=== PATIENT | male | born 1930 | race Caucasian/White ===

== ENCOUNTER → 2017-12-29 | Outpatient (CLI) | payer MEDICARE, OTHER ==
[~2017-12-29] MED LIST: ACET325 PO; ALBU8HFA2 INH; ALLO300 PO; ASCO500 PO; CALCAVITD PO; CHOL10002 PO; CYAN1000 PO; DIAZ5 PO; FISH1000 PO; FLUO25TC TOP; FLUT220OIA IH; FOLI1 PO; GABA100 PO; GABA300 PO; GLUC500 PO; HYDACE5325 PO; IBUP400 PO; LEVO750 PO; MAGOXI400 PO; METO50; METO50 PO; NITR.4SL SL; OMEPRAZOLE MAGN20 MG PO; POTCIT10 PO; PYRI100 PO; ROSU5 PO; TAMS.4ER PO; TOCO1000 PO; VALS80 PO; ZINC15 PO
== END | disposition home or self-care (01) ==
LOC: PLD 12:40 → LAB SHORT 12:40
DX: D48.5 Neoplasm of uncertain behavior of skin (principal)
CPT/HCPCS: 88305

== ENCOUNTER → 2018-01-21 | Outpatient (CLI) | payer MEDICARE, OTHER ==
[~2018-01-21] MED LIST changes: -GABA100 PO; -LEVO750 PO; +METO100 PO; -METO50; -METO50 PO; +OMEP20ER PO; -OMEPRAZOLE MAGN20 MG PO; -TAMS.4ER PO; -TOCO1000 PO; +TOCO400 PO
== END ==
LOC: PLD 13:32 → LAB SHORT 13:32
DX: L57.0 Actinic keratosis (principal)
CPT/HCPCS: 88305

== ENCOUNTER → 2019-06-23 | Outpatient (CLI) | payer MEDICARE, OTHER ==
[~2019-06-23] MED LIST changes: +GABA100 PO; +LEVO750 PO; -METO100 PO; +METO50; +METO50 PO; -OMEP20ER PO; +OMEPRAZOLE MAGN20 MG PO; +TAMS.4ER PO; +TOCO1000 PO; -TOCO400 PO
== END | disposition home or self-care (01) ==
LOC: LAB SHORT 10:22 → PLD 10:22
DX: C44.629 Squamous cell carcinoma of skin of left upper limb, including shoulder (principal); L82.0 Inflamed seborrheic keratosis
CPT/HCPCS: 88305

== ENCOUNTER → 2019-07-22 | Outpatient (CLI) | payer MEDICARE, OTHER | END | disposition home or self-care (01) | LOC: PLD 15:44 → LAB SHORT 15:44 | DX: D11.0 Benign neoplasm of parotid gland (principal) | CPT/HCPCS: 88173 ==

== ENCOUNTER → 2019-12-29 | Outpatient (CLI) | payer MEDICARE, OTHER | END | disposition home or self-care (01) | LOC: PLD 11:01 → LAB SHORT 11:01 | DX: D48.5 Neoplasm of uncertain behavior of skin (principal) | CPT/HCPCS: 88305 ==

== ENCOUNTER → 2021-01-10 | Outpatient (CLI) | payer MEDICARE, OTHER | LOC: LAB 11:59 → LAB SHORT 11:59 | DX: D48.5 Neoplasm of uncertain behavior of skin (principal); Z88.8 Allergy status to other drugs, medicaments and biological substances | CPT/HCPCS: 88305 ==

== ENCOUNTER → 2021-02-12 | Outpatient (CLI) | payer MEDICARE, OTHER | END | disposition home or self-care (01) | LOC: LAB SHORT 08:05 | DX: C44.222 Squamous cell carcinoma of skin of right ear and external auricular canal (principal) | CPT/HCPCS: 88305 ==

== ENCOUNTER 2021-07-19 16:27 | Inpatient (IN) | payer MEDICARE, OTHER ==
[~2021-07-19] VITALS: Ht 170.2 cm; Wt 81.8 kg
[2021-07-19 17:06] LABS: BASOPHILS ABSOLUTE AUTO 0.03 K/mm3 (0.00-0.23); BASOPHILS PERCENT AUTO 0 % (0-2); EOSINOPHILS ABSOLUTE AUTO 0.13 K/mm3 (0.00-0.68); EOSINOPHILS PERCENT AUTO 2 % (0-6); Hematocrit 36.3 % (37.0-53.0); Hemoglobin 11.9 g/dL (13.5-17.5); IMMATURE GRAN ABSOLUTE AUTO 0.03 K/mm3 (0.00-0.10); IMMATURE GRAN PERCENT AUTO 0 % (0-1); LYMPHOCYTES PERCENT AUTO 20 % (21-46); MONOCYTES ABSOLUTE AUTO 1.08 K/mm3 (0.16-1.47); MONOCYTES PERCENT AUTO 15 % (4-13); Mean Corpuscular HGB 31.2 pg (26.0-34.0); Mean Corpuscular HGB Conc 32.8 g/dL (31.5-36.5); Mean Corpuscular Volume 95 fL (80-100); Mean Platelet Volume 9.4 fL (9.1-12.4); NEUTROPHILS ABSOLUTE AUTO 4.66 K/mm3 (1.96-9.15); NEUTROPHILS PERCENT AUTO 63 % (41-73); Platelet Count 216 K/mm3 (150-400); RDW Coefficient Variation 17.1 % (11.7-14.2); RDW Standard Deviation 58.9 fL (35.1-46.3); Red Blood Cell Count 3.82 M/mm3 (4.30-5.90); White Blood Cell Count 7.43 K/mm3 (4.00-11.30)
[2021-07-19 17:33] LABS: Alanine Aminotransfer (ALT/SGP 145 U/L (12-78); Albumin, Blood 3.7 g/dL (3.4-5.0); Albumin/Globulin Ratio 0.8 (0.8-1.8); Alk Phos 141 U/L (50-136); Anion Gap 9 mmol/L (6-16); Aspartate Aminotrans (AST/SGOT 137 U/L (12-37); Bilirubin, Total 3.7 mg/dL (0.1-1.0); Blood Urea Nitrogen 18 mg/dL (8-24); Bun/Creatinine Ratio 13.1 (12.0-20.0); CO2, Blood 22 mmol/L (21-32); Calcium, Blood 9.6 mg/dL (8.5-10.1); Chloride, Blood 104 mmol/L (98-108); Creatinine, Blood 1.37 mg/dL (0.60-1.20); Ethanol (Alcohol), Blood, Med <3 mg/dL; Globulin, Blood 4.9 g/dL (2.2-4.0); Glomerular Filtration Rate 49 (60-); Glucose, Blood 140 mg/dL (70-99); Potassium, Blood 3.7 mmol/L (3.5-5.5); Sodium, Blood 135 mmol/L (136-145); Total Protein, Blood 8.6 g/dL (6.4-8.2); Troponin I <0.015 ng/mL (0.000-0.040)
[2021-07-19] MEDS ORDERED: ALLO300 PO (20:09)
[2021-07-19] MEDS ORDERED: FOLI1 PO (20:09)
[2021-07-19] MEDS ORDERED: ATORVASTATIN CA20 MG PO (20:09)
[2021-07-19] MEDS ORDERED: METOPROLOL TART25 MG PO (20:10)
[2021-07-19] MEDS ORDERED: AMLODIPINE BESYL5 MG PO (20:10)
[2021-07-19] MEDS ORDERED: LOSARTAN POTAS100 MG PO (20:10)
[2021-07-19] MEDS ORDERED: TAMSULOSIN HCL0.4 M1 PO (20:10)
[2021-07-19] MEDS ORDERED: GABA300 PO (20:11)
[2021-07-19] MEDS ORDERED: NEURONTIN300 MG PO (20:11)
[2021-07-20 00:59] LABS: Source, Urine Clean Catch
[2021-07-20 01:02] LABS: Blood, Urine Neg (Neg); Glucose Qualitative, Urine Neg (Neg); Ketones, Urine Neg (Neg); Leukocyte Esterase, Urine 1+ (Neg); Nitrite, Urine Neg (Neg); Protein, Urine 2+ (Neg); Specific Gravity, Urine 1.015 (1.003-1.022); Urobilinogen, Urine 2+ (Normal)
[2021-07-20 01:07] LABS: Appearance, Urine Clear (Clear); Bilirubin, Urine 1+ (Neg); Color, Urine Amber (P-Yellow)
[2021-07-20 01:08] LABS: Bacteria Rare /hpf; Red Blood Cells, Urine Not Seen /hpf (0-2); Squamous Epithelial Cells Not Seen /hpf (Few)
--- NOTE | 2021-07-20 03:22 | NUR ---
SHIFT SUMMARY PT ER ADMIT THIS SHIFT FOR CHOLECYSTITIS, RUQ PAIN. PT MEDICATED FOR PAIN IN ER SHORTLY BEFORE ARRIVAL TO THE UNIT. PLAN IS FOR SURGICAL CONSULT WITH DR. NGUYEN AND POSSIBLE PROCEDURE TODAY. PT IS NPO AT THIS TIME. IV ANTIBIOTICS AND FLUIDS ORDERED. PT IS A/OX4. VITALS STABLE. COVID SWAB SENT FOR PRE-OP SCREENING. BED IN LOWEST POSITION, CALL LIGHT WITHIN REACH.
[2021-07-20 04:16] LABS: SARS-Cov-2 (COVID-19) PCR, MMC NEGATIVE (NEGATIVE)
[2021-07-20 04:34] LABS: BASOPHILS ABSOLUTE AUTO 0.03 K/mm3 (0.00-0.23); BASOPHILS PERCENT AUTO 1 % (0-2); EOSINOPHILS ABSOLUTE AUTO 0.12 K/mm3 (0.00-0.68); EOSINOPHILS PERCENT AUTO 2 % (0-6); Hemoglobin 10.9 g/dL (13.5-17.5); IMMATURE GRAN ABSOLUTE AUTO 0.03 K/mm3 (0.00-0.10); IMMATURE GRAN PERCENT AUTO 1 % (0-1); LYMPHOCYTES ABSOLUTE AUTO 1.49 K/mm3 (0.84-5.20); LYMPHOCYTES PERCENT AUTO 29 % (21-46); MONOCYTES ABSOLUTE AUTO 0.89 K/mm3 (0.16-1.47); MONOCYTES PERCENT AUTO 17 % (4-13); Mean Corpuscular HGB Conc 32.1 g/dL (31.5-36.5); Mean Corpuscular Volume 97 fL (80-100); Mean Platelet Volume 9.2 fL (9.1-12.4); NEUTROPHILS PERCENT AUTO 50 % (41-73); Platelet Count 213 K/mm3 (150-400); RDW Coefficient Variation 16.9 % (11.7-14.2); RDW Standard Deviation 60.6 fL (35.1-46.3); Red Blood Cell Count 3.52 M/mm3 (4.30-5.90); White Blood Cell Count 5.16 K/mm3 (4.00-11.30)
[2021-07-20 04:46] LABS: International Normalized Ratio 1.13; Prothrombin Time Results 12.1 Sec (9.7-11.5)
[2021-07-20 04:50] LABS: Albumin, Blood 3.4 g/dL (3.4-5.0); Albumin/Globulin Ratio 0.8 (0.8-1.8); Bilirubin, Total 1.7 mg/dL (0.1-1.0); Bun/Creatinine Ratio 12.9 (12.0-20.0); Calcium, Blood 9.1 mg/dL (8.5-10.1); Creatinine, Blood 1.24 mg/dL (0.60-1.20); Globulin, Blood 4.3 g/dL (2.2-4.0); Potassium, Blood 3.7 mmol/L (3.5-5.5); Total Protein, Blood 7.7 g/dL (6.4-8.2)
--- NOTE | 2021-07-20 10:56 | NUR ---
History, Chart, Medications and Allergies reviewed before start of procedure.Lungs clear T/O to Auscultation. Patient confirms NPO status and agrees with scheduled surgery. Pre-Op teaching done. Pt verbalizes understanding.
--- NOTE | 2021-07-20 10:59 | NUR ---
PT JEWLERY AND GLASSES LEFT IN ROOM
--- NOTE | 2021-07-20 13:12 | NUR ---
PT IS ALERT ORIENTED, PT IS ON ROOM AIR, PATIENT DENIES HAVING, PAIN, N/V,SOB,PT IS IN BED,PAIN DOWNSTAIR FOR SURGERY, CALLED,AND GAVE REPORT TO RN PT WILL TRANSFER TO ROOM 216 AFTER SURGERY WHERE PT WILL BE MONITORR.
--- NOTE | 2021-07-20 13:50 | NUR ---
07/20/21 Tiffany9 Deepa Skinner MULTIPLE INSTRUMENT COUNTS DONE THROUGHOUT THE CASE, DUE TO THE DIFFICULTY OF THE ORIGINAL INSTRUMENT COUNT, ROOM CONSENSUS WAS TO ALSO ORDER AN X-RAY TO CONFIRM COUNTS.
--- NOTE | 2021-07-20 16:02 | NUR ---
CALLED DR NGUYEN AFTER I RECIEVED THE REPORT FROM THE PACU NURSE TO VOICE CONCERNS ABOUT PAIN CONTROL. DR NGUYEN STATED THAT HE WOULD GO SEE THE PATIENT IN PACU. PT ARRIVED TO UNIT AT APPROX 1545. PT GROANING IN PAIN. 3L OXYGEN VIA NASAL CANNULA ON ARRIVAL. SATURATION 91-94%. CONTINUOUS BIOX PLACED AT THAT TIME. VITALS TAKEN. PT UNABLE TO RESPOND TO MANY QUESTIONS, BUT ORIENTED TO SELF. WILL CONTINUE TO MONITOR.
--- NOTE | 2021-07-20 18:13 | NUR ---
SHIFT SUMMARY PATIENT S/P OPEN CHOLECTOMY POD 0 WITH DOUGIE DRAIN AND MAHENDRA DRAIN. SURGICAL INCISION TO MAHENDRA DRAIN WITH SMALL AMOUNT OF SANGUINEOUS DRAINAGE PRESENT (AREA MARKED). VSS; PATIENT LETHARGIC AROUSABLE WITH LIGHT STIMULATION UPON INITIAL ASSESSMENT. NOW AOX2-3 IMPROVING ALERTNESS. PATIENT REPORTS PAIN 10/10, 2MG PRN IV MORPHINE GIVEN WITH MILD RELIEF. PATIENT TOLERATED WATER, CRACKERS, AND JELLO. DIET ADVANCED PER ORDER. SCHROEDER CATHETER IN PLACE POST OPERATIVELY, FRUIT PUNCH COLOR NOTED, GOOD OUTPUT. HOURLY ROUNDING MAINTAINED, WILL CONTINUE WITH PLAN OF CARE
[2021-07-21 04:09] LABS: BASOPHILS ABSOLUTE AUTO 0.01 K/mm3 (0.00-0.23); BASOPHILS PERCENT AUTO 0 % (0-2); EOSINOPHILS PERCENT AUTO 0 % (0-6); Hematocrit 29.8 % (37.0-53.0); Hemoglobin 9.7 g/dL (13.5-17.5); IMMATURE GRAN ABSOLUTE AUTO 0.05 K/mm3 (0.00-0.10); IMMATURE GRAN PERCENT AUTO 1 % (0-1); LYMPHOCYTES ABSOLUTE AUTO 0.87 K/mm3 (0.84-5.20); LYMPHOCYTES PERCENT AUTO 11 % (21-46); MONOCYTES ABSOLUTE AUTO 0.67 K/mm3 (0.16-1.47); MONOCYTES PERCENT AUTO 8 % (4-13); Mean Corpuscular HGB 30.8 pg (26.0-34.0); Mean Corpuscular HGB Conc 32.6 g/dL (31.5-36.5); Mean Corpuscular Volume 95 fL (80-100); Mean Platelet Volume 9.1 fL (9.1-12.4); NEUTROPHILS ABSOLUTE AUTO 6.47 K/mm3 (1.96-9.15); NEUTROPHILS PERCENT AUTO 80 % (41-73); Platelet Count 224 K/mm3 (150-400); RDW Coefficient Variation 16.3 % (11.7-14.2); RDW Standard Deviation 56.3 fL (35.1-46.3); Red Blood Cell Count 3.15 M/mm3 (4.30-5.90); White Blood Cell Count 8.07 K/mm3 (4.00-11.30)
[2021-07-21 04:31] LABS: Alanine Aminotransfer (ALT/SGP 109 U/L (12-78); Albumin, Blood 3.1 g/dL (3.4-5.0); Albumin/Globulin Ratio 0.8 (0.8-1.8); Alk Phos 106 U/L (50-136); Anion Gap 7 mmol/L (6-16); Aspartate Aminotrans (AST/SGOT 83 U/L (12-37); Bilirubin, Total 1.1 mg/dL (0.1-1.0); Blood Urea Nitrogen 15 mg/dL (8-24); Bun/Creatinine Ratio 14.9 (12.0-20.0); CO2, Blood 25 mmol/L (21-32); Calcium, Blood 8.8 mg/dL (8.5-10.1); Chloride, Blood 103 mmol/L (98-108); Creatinine, Blood 1.01 mg/dL (0.60-1.20); Globulin, Blood 4.1 g/dL (2.2-4.0); Glomerular Filtration Rate >60 (60-); Glucose, Blood 116 mg/dL (70-99); Sodium, Blood 135 mmol/L (136-145); Total Protein, Blood 7.2 g/dL (6.4-8.2)
--- NOTE | 2021-07-21 17:02 | NUR ---
SHIFT SUMMARY PAIN HAS BEEN MANAGED WITH PO PAIN MEDICATION THIS SHIFT. PAIN HAS BEEN MORE TOLERABLE SINCE PT WAS INCREASED FROM 1 PERCOCET TO 2 THIS AFTERNOON. PT WAS A 1-2 PERSON ASSIST FOR TRANSFERS. HE IS WEAK UPON STANDING AND REQUIRES THE GAIT BELT AND WALKER. PT IS HAVING SEROSANGUINOUS DRAINAGE FROM HIS MAHENDRA DRAIN. VSS. WILL MONITOR UNTIL REPORT TO PATRICIA GOFF.
[2021-07-22 05:56] LABS: BASOPHILS ABSOLUTE AUTO 0.04 K/mm3 (0.00-0.23); BASOPHILS PERCENT AUTO 1 % (0-2); EOSINOPHILS ABSOLUTE AUTO 0.11 K/mm3 (0.00-0.68); EOSINOPHILS PERCENT AUTO 2 % (0-6); Hematocrit 29.9 % (37.0-53.0); Hemoglobin 9.6 g/dL (13.5-17.5); IMMATURE GRAN ABSOLUTE AUTO 0.04 K/mm3 (0.00-0.10); IMMATURE GRAN PERCENT AUTO 1 % (0-1); LYMPHOCYTES ABSOLUTE AUTO 1.48 K/mm3 (0.84-5.20); LYMPHOCYTES PERCENT AUTO 20 % (21-46); MONOCYTES ABSOLUTE AUTO 1.06 K/mm3 (0.16-1.47); MONOCYTES PERCENT AUTO 14 % (4-13); Mean Corpuscular HGB Conc 32.1 g/dL (31.5-36.5); Mean Corpuscular Volume 97 fL (80-100); Mean Platelet Volume 9.1 fL (9.1-12.4); NEUTROPHILS ABSOLUTE AUTO 4.78 K/mm3 (1.96-9.15); NEUTROPHILS PERCENT AUTO 64 % (41-73); Platelet Count 232 K/mm3 (150-400); RDW Coefficient Variation 16.7 % (11.7-14.2); White Blood Cell Count 7.51 K/mm3 (4.00-11.30)
[2021-07-22 06:49] LABS: Alanine Aminotransfer (ALT/SGP 82 U/L (12-78); Albumin, Blood 3.2 g/dL (3.4-5.0); Albumin/Globulin Ratio 0.8 (0.8-1.8); Alk Phos 95 U/L (50-136); Anion Gap 6 mmol/L (6-16); Aspartate Aminotrans (AST/SGOT 63 U/L (12-37); Bilirubin, Total 0.8 mg/dL (0.1-1.0); Blood Urea Nitrogen 16 mg/dL (8-24); Bun/Creatinine Ratio 14.5 (12.0-20.0); CO2, Blood 27 mmol/L (21-32); Calcium, Blood 8.9 mg/dL (8.5-10.1); Chloride, Blood 103 mmol/L (98-108); Glomerular Filtration Rate >60 (60-); Glucose, Blood 97 mg/dL (70-99); Potassium, Blood 3.5 mmol/L (3.5-5.5); Sodium, Blood 136 mmol/L (136-145); Total Protein, Blood 7.2 g/dL (6.4-8.2)
--- NOTE | 2021-07-22 16:29 | NUR ---
URINARY CATH PLACED AT THIS TIME DUE TO PATIENTS BLADDER SCAN SHOWED 545ML URINE IN BLADDER, PER HOSPITALIST TO PLACE CATH IF PATIENT UNABLE TO URINATE AFTER FIRST STRAIGHT CATH THIS AM. PATIENT TOLERATED WELL, 14F COUDE PLACED WITH 10ML NS BALLOON INFLATED. OPHELIA COLORED URINE RETURNED WITH BLOOD CLOTS SCATTERED, MINIMAL AMOUNT OF BLOOD CLOTS NOTED.
--- NOTE | 2021-07-22 16:48 | NUR ---
PATIENT LYING IN BED WITH NO SIGNS OR SYMPTOMS ACUTE DISTRESS NOTED. SCHROEDER CATH PLACED FOR URINARY RETENTION PER MD. CALL LIGHT AND WATER IN EASY REACH. WORKED WITH PT TODAY, TOLERATED WELL. ABLE TO MAKE NEEDS AND WANTS KNOWN.
[2021-07-23 04:36] LABS: BASOPHILS ABSOLUTE AUTO 0.06 K/mm3 (0.00-0.23); BASOPHILS PERCENT AUTO 1 % (0-2); EOSINOPHILS ABSOLUTE AUTO 0.16 K/mm3 (0.00-0.68); EOSINOPHILS PERCENT AUTO 3 % (0-6); Hematocrit 29.5 % (37.0-53.0); Hemoglobin 9.6 g/dL (13.5-17.5); IMMATURE GRAN ABSOLUTE AUTO 0.07 K/mm3 (0.00-0.10); IMMATURE GRAN PERCENT AUTO 1 % (0-1); LYMPHOCYTES ABSOLUTE AUTO 1.77 K/mm3 (0.84-5.20); LYMPHOCYTES PERCENT AUTO 29 % (21-46); MONOCYTES ABSOLUTE AUTO 1.07 K/mm3 (0.16-1.47); MONOCYTES PERCENT AUTO 18 % (4-13); Mean Corpuscular HGB 30.7 pg (26.0-34.0); Mean Corpuscular HGB Conc 32.5 g/dL (31.5-36.5); Mean Corpuscular Volume 94 fL (80-100); Mean Platelet Volume 9.2 fL (9.1-12.4); NEUTROPHILS ABSOLUTE AUTO 2.99 K/mm3 (1.96-9.15); NEUTROPHILS PERCENT AUTO 49 % (41-73); Platelet Count 232 K/mm3 (150-400); RDW Coefficient Variation 16.6 % (11.7-14.2); RDW Standard Deviation 57.1 fL (35.1-46.3); Red Blood Cell Count 3.13 M/mm3 (4.30-5.90); White Blood Cell Count 6.12 K/mm3 (4.00-11.30)
[2021-07-23 05:01] LABS: Alanine Aminotransfer (ALT/SGP 69 U/L (12-78); Albumin, Blood 3.2 g/dL (3.4-5.0); Albumin/Globulin Ratio 0.8 (0.8-1.8); Alk Phos 95 U/L (50-136); Anion Gap 7 mmol/L (6-16); Aspartate Aminotrans (AST/SGOT 54 U/L (12-37); Bilirubin, Total 0.8 mg/dL (0.1-1.0); Blood Urea Nitrogen 13 mg/dL (8-24); Bun/Creatinine Ratio 13.6 (12.0-20.0); CO2, Blood 26 mmol/L (21-32); Chloride, Blood 103 mmol/L (98-108); Creatinine, Blood 0.96 mg/dL (0.60-1.20); Globulin, Blood 3.9 g/dL (2.2-4.0); Glomerular Filtration Rate >60 (60-); Glucose, Blood 93 mg/dL (70-99); Potassium, Blood 3.5 mmol/L (3.5-5.5); Sodium, Blood 136 mmol/L (136-145); Total Protein, Blood 7.1 g/dL (6.4-8.2)
--- NOTE | 2021-07-23 06:23 | NUR ---
POD 3 S/P OPEN RHONDA. PT VSS T/O NIGHT. DRESSING CDI. MAHENDRA DRNG LIGHT SS DRNG. PAIN MGD W/2 PERCOCET W/REP RELIEF. PT HAD NO C/O N/V, IS PASSING FLATUS, NO BM. SCHROEDER DRNG CLEAR YELLOW URINE, NO CLOTS NOTED. PT USING I/S AT BEDSIDE.
--- NOTE | 2021-07-23 16:00 | NUR ---
PATIENT IS ALERT AND ORIENTED X 4. ABLE TO MAKE NEEDS AND WANTS KNOWN. CALL LIGHT AND WATER IN EASY REACH. NO SIGNS OR SYMPTOMS ACUTE DISTRESS NOTED. DRESSING TO ABD CDI. MAHENDRA DRAIN DRAINING CLEAR PINK LIQUID. SCHROEDER CATH INTACT WITH NO ISSUES TO NOTE AT THIS TIME. WILL MONITOR.
[2021-07-24 04:40] LABS: BASOPHILS ABSOLUTE AUTO 0.05 K/mm3 (0.00-0.23); BASOPHILS PERCENT AUTO 1 % (0-2); EOSINOPHILS ABSOLUTE AUTO 0.17 K/mm3 (0.00-0.68); EOSINOPHILS PERCENT AUTO 3 % (0-6); Hematocrit 29.9 % (37.0-53.0); Hemoglobin 9.6 g/dL (13.5-17.5); IMMATURE GRAN ABSOLUTE AUTO 0.13 K/mm3 (0.00-0.10); IMMATURE GRAN PERCENT AUTO 2 % (0-1); LYMPHOCYTES PERCENT AUTO 23 % (21-46); MONOCYTES ABSOLUTE AUTO 0.93 K/mm3 (0.16-1.47); MONOCYTES PERCENT AUTO 14 % (4-13); Mean Corpuscular HGB 30.4 pg (26.0-34.0); Mean Corpuscular HGB Conc 32.1 g/dL (31.5-36.5); Mean Corpuscular Volume 95 fL (80-100); NEUTROPHILS ABSOLUTE AUTO 3.78 K/mm3 (1.96-9.15); NEUTROPHILS PERCENT AUTO 58 % (41-73); Platelet Count 247 K/mm3 (150-400); RDW Coefficient Variation 16.5 % (11.7-14.2); RDW Standard Deviation 57.3 fL (35.1-46.3); Red Blood Cell Count 3.16 M/mm3 (4.30-5.90); White Blood Cell Count 6.56 K/mm3 (4.00-11.30)
[2021-07-24 05:20] LABS: Alanine Aminotransfer (ALT/SGP 68 U/L (12-78); Albumin, Blood 3.2 g/dL (3.4-5.0); Albumin/Globulin Ratio 0.8 (0.8-1.8); Alk Phos 103 U/L (50-136); Anion Gap 8 mmol/L (6-16); Aspartate Aminotrans (AST/SGOT 53 U/L (12-37); Bilirubin, Total 0.7 mg/dL (0.1-1.0); Blood Urea Nitrogen 15 mg/dL (8-24); Bun/Creatinine Ratio 14.6 (12.0-20.0); CO2, Blood 25 mmol/L (21-32); Calcium, Blood 9.2 mg/dL (8.5-10.1); Chloride, Blood 102 mmol/L (98-108); Creatinine, Blood 1.03 mg/dL (0.60-1.20); Globulin, Blood 4.2 g/dL (2.2-4.0); Glomerular Filtration Rate >60 (60-); Glucose, Blood 104 mg/dL (70-99); Potassium, Blood 3.6 mmol/L (3.5-5.5); Sodium, Blood 135 mmol/L (136-145); Total Protein, Blood 7.4 g/dL (6.4-8.2)
--- NOTE | 2021-07-24 06:15 | NUR ---
PT IS A/OX3. ABLE TO MAKE HIS NEEDS KNOWN. PLEASANT AND COOPERATIVE WITH STAFF AND HIS CARE. IS [place], ONLY HAS 1 HEARING AID AT THIS TIME. NO EVENTS OVER NIGHT. DNR. SCHROEDER CATHETER PATENT, DRAINING CLEAR/YELLOW URINE. BT'S POS X4. DENIED ANY N/V. REPORTS PASSING SOME GAS, BUT IS BELCHING MORE. TOLERATING REG DIET WELL. LAST BM 07/23. PIV TO LAC, PATENT AND SL. DOUGIE DRSG TO ABD CDI. OTHER INCISIONS W/STERI STRIPS.
--- NOTE | 2021-07-24 09:08 | NUR ---
(HOSPITAL SYSTEM WAS DOWN YESTERDAY, THIS NOTE IS FOR 07/23/21) Per chart review with Dr. Bob, pt as MAHENDRA drain still in and this could potentially be removed today. Plan is to d/c the pt tomorrow with his stewart still intact. will order home health at discharge. Pt is fully vaccinated and tested COVID neg. -kjb
[2021-07-24] MEDS ORDERED: Percocet 5-3251 EACH PO (12:50)
--- NOTE | 2021-07-24 13:02 | NUR ---
07/24/21- per chart review with Dr. Bob, pt is stable to discharge home with home health. Met with pt and he declines home health. He states that he doesn't know what they could do for him that he couldn't do for himself and all he needs to do is get moving at home. Explained the benefits of home health and pt still declined. Updated Dr. Bob and he will leave the home health order in chart in case pt changes his mind when he gets home. This was discussed with the pt that he will have the option. Pt reports that he was independent prior to coming into the hospital. He had no caregivers before and no home health. Pt lives in single story home with working utilities with his . There are 3-4 stairs to get into the home with railings and he has no concerns using them. Pt reports that he is still driving and his pharmacy is [facility] in [place]. Pt reports that he is not ready to make hospital f/u appt because he is not ready to drive. Discussed the option of tele-visit appt and pt declined this because "they are pointless." Provided pt with discharge letter and list of area caregivers if he choses to hire one. -nelson
--- NOTE | 2021-07-24 14:16 | NUR ---
DISCHARGE INSTRUCTIONS GIVEN TO PATIENT AT THIS TIME. PATIENT VERBALIZED UNDERSTANDING. MAHENDRA DRAIN EDUCATION GIVEN TO NICOLE, DRESSING TO MAHENDRA DRAIN CDI. DOUGIE DRESSING TO RUQ CDI, EXPLAINED TO PATIENT TO KEEP DRESSINGS CLEAN, DRY AND INTACT. IF THEY COME OFF REPLACE WITH DRESSING SENT HOME WITH. PATIENT DISCHARGING HOME WITH SCHROEDER CATH IN PLACE. LEG BAG PLACED FOR GOING HOME, INSTRUCTED PATIENT TO PUT LARGE BAG ON AT NIGHT, EDUCATION PROVIDED. PATIENT TO FOLLOW UP WITH UROLOGY AND PCP SOON POSSIBLE. NO SIGNS OR SYMPTOMS ACUTE DISTRESS NOTED. AWAITING PATIENTS RIDE TO DISCHARGE. IV REMOVED, TOLERATED WELL.
== END 2021-07-24 14:26 | disposition home or self-care (01) | DRG 415 ==
LOC: ER 16:27 → MEDS 07-20 01:31 → SURS 07-20 01:31 → MEDS 07-20 02:48 → SURS 07-20 12:05
PROVIDERS: Emergency Medicine; Emergency Medicine Emergency Medical Services; Family Medicine; Surgery; ADMIT Hospitalist
PROC: BF13YZZ Fluoroscopy of Gallbladder and Bile Ducts using Other Contrast (ICD-10-PCS; 2021-07-20)
PROC: 0FT40ZZ Resection of Gallbladder, Open Approach (ICD-10-PCS; principal; 2021-07-20 11:15)
PROC: 0FJ44ZZ Inspection of Gallbladder, Percutaneous Endoscopic Approach (ICD-10-PCS; 2021-07-20 11:15)
DX: K81.0 Acute cholecystitis (principal); I69.354 Hemiplegia and hemiparesis following cerebral infarction affecting left non-dominant side; I25.10 Atherosclerotic heart disease of native coronary artery without angina pectoris; Z20.822 Contact with and (suspected) exposure to COVID-19; K76.89 Other specified diseases of liver; I12.9 Hypertensive chronic kidney disease with stage 1 through stage 4 chronic kidney disease, or unspecified chronic kidney disease; R33.8 Other retention of urine; Z53.31 Laparoscopic surgical procedure converted to open procedure; N40.1 Benign prostatic hyperplasia with lower urinary tract symptoms; N18.30 Chronic kidney disease, stage 3 unspecified; M10.9 Gout, unspecified; Z98.890 Other specified postprocedural states; Z90.89 Acquired absence of other organs; Z90.79 Acquired absence of other genital organ(s); Z79.899 Other long term (current) drug therapy; Z88.8 Allergy status to other drugs, medicaments and biological substances; Z85.51 Personal history of malignant neoplasm of bladder
CPT/HCPCS: 36415; 71045; 74018; 74176; 74300; 76705; 80053; 81001; 83690; 84484; 85025; 85610; 85730; 86850; 86900; 86901; 87086; 88304; 93005; 93010; 94762; 96365; 96375; 96376; 97116; 97162; 97530; 99285-25; A9270; C1729; G0480; J0295; J1100; J1644; J2270; J2370; J2405; J2704; J3010; J7030; J7050; J7120; U0004

== ENCOUNTER → 2021-08-16 | Outpatient (CLI) | payer MEDICARE, OTHER ==
[~2021-08-16] MED LIST changes: +AMLODIPINE BESYL5 MG PO; +ATORVASTATIN CA20 MG PO; +LOSARTAN POTAS100 MG PO; +METOPROLOL TART25 MG PO; +NEURONTIN300 MG PO; +Percocet 5-3251 EACH PO; +TAMSULOSIN HCL0.4 M1 PO
[2021-08-16 14:49] LABS: BASOPHILS ABSOLUTE AUTO 0.05 K/mm3 (0.00-0.23); BASOPHILS PERCENT AUTO 0 % (0-2); EOSINOPHILS PERCENT AUTO 2 % (0-6); Hematocrit 30.7 % (37.0-53.0); Hemoglobin 9.9 g/dL (13.5-17.5); IMMATURE GRAN ABSOLUTE AUTO 0.08 K/mm3 (0.00-0.10); IMMATURE GRAN PERCENT AUTO 1 % (0-1); LYMPHOCYTES ABSOLUTE AUTO 1.79 K/mm3 (0.84-5.20); LYMPHOCYTES PERCENT AUTO 13 % (21-46); MONOCYTES ABSOLUTE AUTO 2.17 K/mm3 (0.16-1.47); MONOCYTES PERCENT AUTO 15 % (4-13); Mean Corpuscular HGB 30.7 pg (26.0-34.0); Mean Corpuscular HGB Conc 32.2 g/dL (31.5-36.5); Mean Corpuscular Volume 95 fL (80-100); Mean Platelet Volume 9.1 fL (9.1-12.4); NEUTROPHILS ABSOLUTE AUTO 9.97 K/mm3 (1.96-9.15); NEUTROPHILS PERCENT AUTO 69 % (41-73); Platelet Count 135 K/mm3 (150-400); RDW Standard Deviation 62.4 fL (35.1-46.3); Red Blood Cell Count 3.22 M/mm3 (4.30-5.90); White Blood Cell Count 14.36 K/mm3 (4.00-11.30)
[2021-08-16 15:10] LABS: Alanine Aminotransfer (ALT/SGP 37 U/L (12-78); Alk Phos 107 U/L (40-126); Anion Gap 9 mmol/L (6-16); Aspartate Aminotrans (AST/SGOT 23 U/L (12-37); Bilirubin, Total 1.1 mg/dL (0.1-1.0); Blood Urea Nitrogen 11 mg/dL (8-24); Bun/Creatinine Ratio 8.7 (12.0-20.0); CO2, Blood 27 mmol/L (21-32); Calcium, Blood 9.4 mg/dL (8.5-10.1); Chloride, Blood 98 mmol/L (98-108); Creatinine, Blood 1.26 mg/dL (0.60-1.20); Globulin, Blood 3.9 g/dL (2.2-4.0); Glomerular Filtration Rate 54 (60-); Glucose, Blood 90 mg/dL (70-99); Potassium, Blood 3.5 mmol/L (3.5-5.5); Sodium, Blood 134 mmol/L (136-145); Thyroid Stimulating Hormone 0.495 uIU/mL (0.360-4.800); Total Protein, Blood 7.9 g/dL (6.4-8.2)
[2021-08-16 15:12] LABS: Troponin I <0.017 ng/mL (0.000-0.040)
== END | disposition home or self-care (01) ==
LOC: LAB 14:44 → LAB SHORT 14:44
PROVIDERS: Physician Assistant Surgical
DX: N39.0 Urinary tract infection, site not specified (principal); R53.83 Other fatigue
CPT/HCPCS: 80053; 83880; 84443; 84484; 85025; 87077; 87086; 87186